=== PATIENT | male | born 1995 | race Caucasian/White ===

== ENCOUNTER → 2019-11-09 09:22 | Outpatient (CLI) | payer SELFPAY ==
[2019-11-09 09:16] VITALS: BMI 23.3
--- NOTE | 2019-11-09 09:26 | RAD_ITS ---
STUDY: X-RAY - PELVIS AND LEFT HIP REASON FOR EXAM: Tightness in left hip on and off for 1 year, no specific injury. TECHNIQUE: 2 views of the pelvis and hip. COMPARISON: None. FINDINGS: Normal visualized soft tissue structures. Normal bilateral iliac wings, sacroiliac joints and visualized sacrum. Normal bilateral superior and inferior pubic rami. Normal pubic symphysis. Normal bilateral ischial tuberosities. Normal visualized femoral head. Normal acetabulum. Normal hip joint. RAD/HIP, UNI W/ Pelvis 2-3 Views IMPRESSION: Normal x-ray examination of the pelvis and left hip. Electronically Signed: George Galan MD at 10:06 EDT Tel , Service support ,
== END ==
PROVIDERS: Referring Provider Orthopaedic Surgery; Visit Provider Orthopaedic Surgery
DX: M25.552 Pain in left hip (principal)
CPT/HCPCS: 73502

== ENCOUNTER 2019-11-10 07:26 | Outpatient (RCR) | payer SELFPAY ==
[2019-11-09 09:16] VITALS: BMI 23.3
--- NOTE | 2019-11-10 08:27 | HP.PTEVAL_ITS ---
Patient's Visit Information DAHIANA CLEARY is a 24 year old M referred to Physical Therapy by Dr. Dejah Rodgers DO with a diagnosis of L hip pain. Date of Evaluation: 11/10/19 Physical Therapist: Beau Jacob, PT, ATC - Visit Plan Frequency: 1x/Week Duration: 1 Week Plan: Issued and instructed pt on HEP for illiopsoas and piriformis stretching - Subjective Subjective: Pt reports he has had L hip pain for greater than one year. 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 Pt reports he has pain whil at work, but even notes he has pain with just sitting. Pt reports he has been laid off over the winter and the muscles have even become more tight at this time. Pt denies tingling or numbness at this time. No sleep difficulty secondary to pain. Pt notes squatting also increases his pain. 0/10 pain at rest, 2/10 pain at worst. - Pain L hip Pain Intensity (Out of 10): 0 Pain Intensity Range: 2 - Objective Nuero: B LE sensation is WNL to light touch. B patellar reflex= 2/3. palpation: Pt is very tight in the L hip region. No obvious deformity. ROM: B LE's are WNL at this time. MMT: B LE's 5/5 throughout - Goals Goal 1:: I with HEP Goal Time Frame: 1 Week - Rehabilitation Potential Physical Therapy Diagnosis: Pt has L hip pain secondary to L hip flexor strain Rehabilitation Potential: Good - Anticipated Interventions Patient/Client Instruction: Educate patient on: Condition, Plan of Care For the Purpose of:: To decrease pain, To improve muscle performance and motor function Therapeutic Exercise to Include: Flexibilty training For the Purpose of:: To decrease pain Thank you for the opportunity to evaluate your patient. For Medicare and Medicare HMO plans, please review the plan of care and approve it. It will need to be FAXED BACK to us at [phone] for Medicare purposes. For Medicare only, by signing this I certify the plan of care. Please let me know if there are questions or concerns regarding this plan of care. Physician Signature: Date:
== END 2019-11-10 19:00 | disposition home or self-care (01) ==
LOC: PT 07:26
PROVIDERS: Referring Provider Orthopaedic Surgery; Visit Provider Orthopaedic Surgery
DX: M76.32 Iliotibial band syndrome, left leg (principal); M76.12 Psoas tendinitis, left hip
CPT/HCPCS: 97110; 97161